=== PATIENT | male | born 1975 | race Caucasian/White ===

== ENCOUNTER 2021-11-01 15:25 | Emergency (ER) | payer MEDICAID, SELFPAY ==
[2021-11-01 15:31] VITALS: BP 122/87; PULSE 72; RESP 18; TEMP 36.6; O2SAT 98
--- NOTE | 2021-11-01 15:48 | ED.GENADUL_ITS ---
Discharge Plan Disposition Patient Disposition: HOME Condition: Stable Discharge Details Clinical Impression: Pain, dental Primary Care Provider: Chuy Bennett ED Provider: Merle Price Home Meds and New Rx's Prescriptions: New clindamycin HCl [Cleocin HCl] 150 mg capsule 450 mg PO QID 7 Days Qty: 84 0RF No Action oxycodone-acetaminophen 1 TAB tablet 1 - 2 tab PO Q4H PRN PRNQty: 90 0RF methadone 10 mg/5 mL Solution 45 mg PO DAILY 0RF Discharge Instructions Instructions: Toothache (ED) Additional Instructions: Rinse mouth out after eating or drinking anything. Practice good oral hygiene. Follow up with a dentist as soon as possible. Take the antibiotic as directed. Take tylenol or ibuprofen every 4-6 hours as needed for pain and swelling. Follow up with PCP, return to ED if worsening swelling, problems swallowing, fever, or any concerns. Referrals: Chuy Bennett [Primary Care Provider] - 1 week Medical Decision Making 46 year old male presents to ED with complaint of Left upper tooth pain. He reports pain worsened about 4 weeks ago. He has multiple dental caries and left upper tooth is eroded down to the gum line. Offered patient dental block which he declined at this time. Patient given dental resources, Hurricaine gel and started on clindamycin. This text was generated using [employer] system, please disregard any oddities of phrase or misspellings. HPI General Mode of arrival: ambulatory . Date/Time Provider Initiated Documentation: 11/01/21 15:37 . Limitations to Documentation: no limitations . Information obtained by: patient and RN notes reviewed . HPI Narrative: 46 year old male presents to ED with complaint of Left upper tooth pain. He reports pain worsened about 4 weeks ago. He has multiple dental caries and left upper tooth is eroded down to the gum line. Multiple broken teeth. He reports he has been taking aspirin for pain. He is requesting a dental referral. Patient has a past medical history of chronic hepatitis C, drug abuse. He is afebrile upon arrival. Related Data Home Medications Medication Instructions Recorded Confirmed oxycodone-acetaminophen 5 mg-325 1 - 2 tab PO Q4H PRN PRN #90 tab 05/15/13 mg tablet clindamycin HCl 150 mg capsule 450 mg PO QID 7 Days #84 cap 11/01/21 (Cleocin HCl) methadone 10 mg/5 mL oral solution 45 mg PO DAILY 11/01/21 11/01/21 Previous Rx's Medication Instructions Recorded oxycodone-acetaminophen 5 mg-325 1 - 2 tab PO Q4H PRN PRN #90 tab 05/15/13 mg tablet clindamycin HCl 150 mg capsule 450 mg PO QID 7 Days #84 cap 11/01/21 (Cleocin HCl) Allergies Allergy/AdvReac Type Severity Reaction Status Date / Time latex AdvReac Skin Rash Unverified 11/01/21 15:34 General Stated Complaint: DentalOral MARNIE: 4 Review of Systems All systems reviewed & are unremarkable except as noted in HPI and below Constitutional Constitutional: Reports as per HPI, Denies fever(s) and Denies headache(s) ENT Ears, Nose, Mouth, and Throat: Reports dental pain, Denies dysphagia, Denies otalgia, Denies facial pain, Denies headache(s), Reports mouth pain and Denies neck mass Gastrointestinal Gastrointestinal: Denies dysphagia Neurologic Neurologic: Denies headache(s) PFSH All Active Problems Intertrochanteric fracture (Active 05/10/13) Left femur ORIF by Dr. Jorge Clay 05-11-2013 Drug abuse (Active) IV drug abuse, clean for three months. Chronic hepatitis C (Active) Pain, dental (Acute) Social History Smoking/Tobacco Use Status: Former Tobacco Use Smoking risk assessment performed?: Yes Alcohol Intake: never Drug use: Occasionally Substance use type: marijuana Do you feel safe at home: Yes Do you feel safe in your relationship?: Yes Exam HENOR Teeth and gingiva: caries, gingiva abnormal diffusely erythematous and poor dentition Teeth image: 1. Tooth is down to the gumline, surrounding gingival erythema. No obvious area of fluctuance or drainable abscess noted. Multiple dental caries noted throughout the mouth and missing teeth. Throat: posterior oropharynx normal Course Vital Signs Vital signs: Vital Signs Temperature 36.6 C 11/01/21 15:31 Pulse 72 11/01/21 15:31 Respiratory Rate 18 11/01/21 15:31 Blood Pressure 122/87 11/01/21 15:31 Pulse Oximetry 98 11/01/21 15:31 Temperature 36.6 C 11/01/21 15:31 Temperature Source Temporal Artery Scan 11/01/21 15:31 Pulse 72 11/01/21 15:31 Respiratory Rate 18 11/01/21 15:31 Respiratory Effort Non-Labored 11/01/21 15:36 Blood Pressure 122/87 11/01/21 15:31 Blood Pressure Position Sitting 11/01/21 15:31 Pulse Oximetry 98 11/01/21 15:31 Oxygen Delivery Method Room Air 11/01/21 15:31 Oxygen Flow Rate 0 11/01/21 15:31
[2021-11-01] MEDS: Clindamycin 150 MG CAP 450 MG PO (15:53)
[2021-11-01] MEDS: Benzocaine 20% Gel 30 GM JAR MM (15:53)
[2021-11-01] MEDS: Clindamycin 150 MG CAP, 12 CAPS/BTL 450 MG PO (16:01)
[2021-11-01 16:05] VITALS: BP 122/87; PULSE 72; RESP 18; TEMP 36.6; O2SAT 98
== END 2021-11-01 16:03 | disposition home or self-care (01) ==
PROVIDERS: Emergency Provider Registered Nurse Emergency; PCP Physician Assistant
DX: K08.89 Other specified disorders of teeth and supporting structures (principal)
CPT/HCPCS: 99283